=== PATIENT | female | born 1940 | race Caucasian/White ===

== ENCOUNTER 2017-12-24 04:44 | Inpatient (IN) | payer MEDICARE, MEDICAID ==
[~2017-12-24] VITALS: Ht 167.6 cm; Wt 78.1 kg
--- NOTE | ~2017-12-24 | OP ---
PATIENT NAME: NILAY BENNETT MEDICAL RECORD: [id number] :40 LOCATION:D.MS [facility]2237 ADMISSION DATE:12/24/17 SURGEON: KARLA PENA MD DATE OF OPERATION: 12/26/2017 PROCEDURES: 1. PTCA stent left main. 2. Left heart catheterization. 3. Selective coronary angiography. 4. Vein graft angiography. 5. DACOSTA angiography. 6. HOLLI angiography. INDICATION: Non-Q-wave myocardial infarction and coronary artery disease. PROCEDURE IN DETAIL: After informed consent was obtained and after a detailed description of risks, benefits as well as alternative therapies, the patient elected to proceed with angiogram and angioplasty. The right femoral area was prepped and draped in normal sterile fashion. The right femoral artery was cannulated via modified Seldinger technique with placement of 6-Zimbabwean sheath. All catheters exchanged through this sheath. FINDINGS: The left ventriculogram was performed in standard 30-degree MCGRAW view, reveals global hypokinesis throughout all segments. Overall ejection fraction 35% to 40%. SELECTIVE CORONARY ANGIOGRAPHY: 1. Left main has 85% stenosis distally. 2. Left anterior descending is totally occluded. 3. DACOSTA to the LAD is widely patent. There is an 85% hazy stenosis after the DACOSTA. 4. The left circumflex has moderate irregularities, but no flow-limiting stenosis. 5. Right coronary is totally occluded. 6. HOLLI to the RCA is totally occluded. PTCA STENT OF THE LEFT MAIN: Left main was addressed with a 3.5 x 15 mm Dc stent. Result was 0% residual stenosis. OVERALL IMPRESSION: Successful PTCA stent of the left main leading to the non-grafted circumflex going from 85% initial stenosis to 0% residual. PLAN: PTCA stent of the LAD through the DACOSTA graft in the near future. TRANSINT:[id number] Voice Confirmation ID: [id number] DOCUMENT ID: [id number] KARLA PENA MD at 1816 CC: [id number] DICTATION DATE: 12/26/17 1245 SCULLION CHIEF: 12/26/17 1321 [place] [address]
--- NOTE | ~2017-12-24 | OP ---
PATIENT NAME: NILAY BENNETT MEDICAL RECORD: [id number] :40 LOCATION:D.M2 D.2116 ADMISSION DATE:12/24/17 SURGEON: KARLA PENA MD DATE OF OPERATION: 12/28/2017 PROCEDURES: 1. PTCA stent LAD. 2. Selective coronary angiography. INDICATION: Angina and coronary artery disease. PROCEDURE IN DETAIL: After informed consent was obtained and after detailed description of risks, benefits as well as alternative therapies, the patient elected to proceed with angiogram and angioplasty. The left femoral area was prepped and draped in normal sterile fashion. Left femoral artery was cannulated via modified Seldinger technique with placement of 6-Liberian sheath. All catheters exchanged through this sheath. FINDINGS: The left anterior descending has 80% hazy stenosis after the patent DACOSTA graft. We went through the DACOSTA graft and addressed this with a 3.0 x 12 mm Dc stent. Result was 0% residual stenosis. OVERALL IMPRESSION: Successful percutaneous transluminal coronary angioplasty stent of the left anterior descending through the patent left internal mammary artery graft going from 80% initial stenosis to 0% residual. TRANSINT:[id number] Voice Confirmation ID: [id number] DOCUMENT ID: [id number] KARLA PENA MD at 1059 CC: [id number] DICTATION DATE: 12/28/17 170 PET SITTER: 12/28/17 172 DIS IN 12/29/17 [id number] [place] [address]
--- NOTE | ~2017-12-24 | MORECARE ---
CASE MANAGEMENT DISCHARGE SUMMARY PATIENT: NILAY RUBIO UNIT: [id number] ADM DATE: 12/24/17 AGE: 77 : 40 SEX: F ROOM/BED: D.7686 AUTHOR: KATHY,DOC PHYSICIAN: REFERRING PHYSICIAN: JOELLEN TINOCO MD DATE OF SERVICE: 12/31/17 Discharge Plan Patient Name: NILAY RUBIO Facility: [facility]:[place] : 1940 Planned Disposition: Home Anticipated Discharge Date: 12/29/17 Discharge Date: 12/29/2017 Expected LOS: 5 Initial Reviewer: [email or web address] Initial Review Date: 12/25/2017 Generated: 12/31/17 8:50 am Comments DCP- Discharge Planning Updated by [email or web address]: Sue Ortega on 12/28/17 2:[address] Received orders for discharge after heart cath. She has not gone to the grinding and polishing laborer yet. She states she does not have any needs at this time for discharge. CM will continue to follow and assist with discharge planning/needs. DCP- Discharge Planning Updated by [email or web address]: Sue Ortega on 12/25/17 2:[address] Patient Name: NILAY RUBIO Admission Status: ER Accout number: [id number] Admission Date: 12-24-2017 : 1940 Admission Diagnosis: Attending: JOELLEN TINOCO Current LOS: 1 Anticipated DC Date: Planned Disposition: Home Primary Insurance: MEDICARE A & B Discharge Planning Comments: CM met with patient and spouse to discuss discharge planning. She lives with her and is independent with all ADL's and IADL's. States she gets her CPAP supplies from [facility]. [facility] checks her glucose daily. She denies need for additional DME or Home health services. CM will continue to follow and assist with discharge planning/needs. Dairy Frozen Manager: Sue Ortega DCPIA - Discharge Planning Initial Assessment Updated by [email or web address]: Sue Ortega on 12/25/17 2:31 pm * Is the patient Alert and Oriented? Yes * How many steps to enter\exit or inside your home? 1/0 * PCP Dr. Horton in [place] * Pharmacy [facility] [place] * Preadmission Environment Home with Family * ADLs Independent * Equipment CPAP Glucometer * List name and contact numbers for known caregivers / representatives who currently or will assist patient after discharge: David Rubio - spouse - [phone] * Verbal permission to speak to the caregivers and representatives has been obtained from the patient. Yes * Community resources currently utilized None * Additional services required to return to the preadmission environment? No * Can the patient safely return to the preadmission environment? Yes * Has this patient been hospitalized within the prior 30 days at any hospital? No Coverage Notice Reviewer: [email or web address] Elena Ortega Notice Issued Date-Time: 12/28/2017 14:29 Notice Type: IM Discharge Notice Notice Delivered To: Patient Relationship to Patient: Self Cna Instructor Name: David Rubio Delivery Method: HAND - Hand Delivered Kylah Days: Prior Verbal Notification: Recipient Understood Notice: Yes Recipient Signature: Yes Med Rec Note Co-signed by Attending: Coverage Notice Comment: IMM explained, signed, copy given, original placed in MR. Signed by per her request. Last DP export: 12/28/17 2:39 p Patient Name: NILAY RUBIO Page 49512 at 0750 All edits/amendments must be made on the electronic document DICTATION DATE: 12/31/17748 PSYCHOLOGIST CHIEF: JOSE 12/31/1749 RPT#: [id number] DC DATE:12/29/17 STATUS: DIS IN [facility] [address] [place] [address] END OF REPORT
--- NOTE | ~2017-12-24 | MORECARE ---
CASE MANAGEMENT DISCHARGE SUMMARY PATIENT: NILAY RUBIO UNIT: [id number] ADM DATE: 12/24/17 AGE: 77 : 40 SEX: F ROOM/BED: D.2237 AUTHOR: KATHY,DOC PHYSICIAN: REFERRING PHYSICIAN: JOELLEN TINOCO MD DATE OF SERVICE: 12/25/17 Discharge Plan Patient Name: NILAY RUBIO Facility: [facility]:[place] : 1940 Planned Disposition: Home Anticipated Discharge Date: Discharge Date: Expected LOS: Initial Reviewer: [email or web address] Initial Review Date: 12/25/2017 Generated: 12/25/17 3:41 pm Comments DCP- Discharge Planning Updated by [email or web address]: Sue Jordan on 12/25/17 1:[address] Patient Name: NILAY RUBIO Admission Status: ER Accout number: [id number] Admission Date: 12-24-2017 : 1940 Admission Diagnosis: Attending: JOELLEN TINOCO Current LOS: 1 Anticipated DC Date: Planned Disposition: Home Primary Insurance: MEDICARE A & B Discharge Planning Comments: CM met with patient and spouse to discuss discharge planning. She lives with her and is independent with all ADL's and IADL's. States she gets her CPAP supplies from [facility]. [facility] checks her glucose daily. She denies need for additional DME or Home health services. CM will continue to follow and assist with discharge planning/needs. Radar Scientist: Sue Ortega DCPIA - Discharge Planning Initial Assessment Updated by [email or web address]: Sue Ortega on 12/25/17 2:31 pm * Is the patient Alert and Oriented? Yes * How many steps to enter\exit or inside your home? 1/0 * PCP Dr. Horton in [place] * Pharmacy [facility] [place] * Preadmission Environment Home with Family * ADLs Independent * Equipment CPAP Glucometer * List name and contact numbers for known caregivers / representatives who currently or will assist patient after discharge: David Rubio - spouse - [phone] * Verbal permission to speak to the caregivers and representatives has been obtained from the patient. Yes * Community resources currently utilized None * Additional services required to return to the preadmission environment? No * Can the patient safely return to the preadmission environment? Yes * Has this patient been hospitalized within the prior 30 days at any hospital? No Last DP export: 12/25/17 1:32 Patient Name: NILAY RUBIO Page 92469 at 1441 All edits/amendments must be made on the electronic document DICTATION DATE: 12/25/171440 LASERIST: JOSE 12/25/171440 RPT#: [id number] DC DATE: STATUS: ADM IN [facility] [address] [place] [address] END OF REPORT
--- NOTE | ~2017-12-24 | HEMODYNAMI ---
PATIENT:NILAY BENNETT MEDICAL RECORD: [id number] : 40 LOCATION:[facility] [place]37 ADMISSION DATE: 12/24/17 Generatedon:12/26/201712:54 Patient name: NILAY BENNETT Patient #: [id number] SSN: : 1 04/16/1939 Date of study: 12/26/2017 Page: Of Hemodynamic Procedure Report Patient Data Patient Demographics Procedure consent was obtained First Name: NILAY Gender: Female Last Name: SABRINA : 1940 Patient #: [id number] Age: 77 year(s) Race: Unknown Additional ID: [id number] Contact details [address]: [address] [place] [address] State: [place] City: [place] Zip code: [address] Past Medical History Allergies Allergen Reaction Date Comments Reported Statins 12/26/2017 Admission Admission Data Admission Date: 12/24/2017 Admission Time: 7:18 Room #: D2237 Procedure Procedure Types Cath Procedure Diagnostic Procedure LHC LHC w/Coronaries w/Grafts PCI Procedure Coronary Stent Coronary Stent Initial Procedure Description Procedure Date Procedure Date: 12/26/2017 Procedure Start Time: 12:28 Procedure End Time: 12:47 Procedure Staff Name Function Urbano Vásquez MD Performing Physician Obi Perez RT Monitor Virginie Powell RT Scrub Marie Alexandra RN Nurse Procedure Data Cath Procedure Fluoroscopy Diagnostic fluoroscopy Total fluoroscopy Time: 3.8 time: 3.8 min min Diagnostic fluoroscopy Total fluoroscopy dose: 698 dose: 698 mGy mGy Contrast Material Contrast Material Type Amount (ml) Isovue 300 120 Entry Location Entry Primary Successful Side Size Upsize Upsize Entry Closure Succes sful Closure Location (Fr) 1 (Fr) 2 (Fr) Remarks Device Remarks Femoral Right 5 Fr 6 Fr Exoseal artery Short Estimated blood loss: 10 ml Diagnostic catheters Device Type Used For End Catheter Placement MULTIPACK Pigtail 5 Fr Procedure catheter MULTIPACK JL 4.0 5Fr Procedure catheter MULTIPACK 3DRC 5Fr Procedure catheter Procedure Complications No complications Procedure Medications Medication Administration Route Dosage 0.9% NaCl I.V. 100 ml/hr Oxygen etCO2 Nasal cannula 2 l/min Lidocaine 2% added to field 20 Heparin Flush Bag added to field 2 bags (1000units/500ml NS) Versed I.V. 2 mg Fentanyl I.V. 100 mcg Versed I.V. 2 mg Fentanyl I.V. 50 mcg Heparin Bolus I.V. 4000 units Plavix P.O. 75 mg Versed I.V. 1 mg Hemodynamics Rest Heart Rate: 95 (bpm) Pressure Samples Time Site Value (mmHg) Purpose Heart Use Rate(bpm) 12:29 LV 148/17,19 Pullback 82 12:29 AO 113/65(86) Pullback 82 Gradients Valve Time Site 1 Site 2 Mean SEP/DFP Peak To Heart Use (mmHg) (sec/min) Peak Rate (mmHg) (bpm) Aortic 12:29 LV AO 28 24 35 82 148/17,19 113/65(86) Calculations Valve P-P Mean Valve Index Valve Source Name Gradient Area Flow (cm2) Aortic 35 28 35 28 Snapshots Pre Cath Intra NCS Post Cath Vital Signs Time Heart Resp SPO2 etCO2 NIBP Rhythm Pain Sedation Rate (ipm) (%) (mmHg) (mmHg) Status Level (bpm) 12:17:12 105 28 96 24.6 96/84(92) NSR 0 (11) 10(A) , No pain 12:22:38 91 25 96 29.8 111/57(77) NSR 0 (11) 10(A) , No pain 12:27:02 84 23 97 29.8 108/63(87) NSR 0 (11) 10(A) , No pain 12:31:28 83 14 96 30 104/49(75) NSR 0 (11) 10(A) , No pain 12:35:50 88 12 95 24.6 104/56(77) NSR 0 (11) 10(A) , No pain 12:40:15 86 14 95 27.6 96/49(76) NSR 0 (11) 10(A) , No pain 12:44:31 91 17 95 27.6 106/65(84) NSR 0 (11) 10(A) , No pain Medications Time Medication Route Dose Verified Delivered Reason Notes Effectiveness by by 11:59:12 0.9% NaCl I.V. 100 Urbano Marie used for ml/hr Thalia Alexandra financial recording clerk 11:59:25 Oxygen etCO2 2 Urbano Marie used for Nasal l/min Thalia Alexandra procedure cannula RN 11:59:34 Lidocaine 2% added 20ml Urbano Urbano for local to vial Thalia Vásquez MD anesthetic field 11:59:38 Heparin Flush added 2 Urbano Urbano used for Bag to bags Thalia Vásquez MD procedure (1000units/500ml field NS) 12:28:40 Versed I.V. 2 mg Urbano Marie for sedation Thalia Alexandra RN 12:28:49 Fentanyl I.V. 100 Urbano Marie for sedation mcg Thalia Alexandra RN 12:33:33 Versed I.V. 2 mg Urbano Marie for sedation Thalia Alexandra RN 12:33:42 Fentanyl I.V. 50 Urbano Marie for sedation mcg Thalia Alexandra RN 12:36:27 Heparin Bolus I.V. 4000 Urbano Marie for units Thalia Alexandra anticoagulation RN 12:36:37 Plavix P.O. 75 mg Urbano Marie for Thalia Alexandra antiplatelet RN therapy 12:36:55 Versed I.V. 1 mg Urbano Marie for sedation Thalia Alexandra finishing department supervisor Log Time Note 11:54:07 Time tracking: Regular hours (M-F 7:00 - 5:00) 11:54:10 Plan of Care:Hemodynamics will remain stable., Cardiac rhythm will remain stable., Comfort level will be maintained., Respiratory function will remain adequate., Patient/ family verbilizes understanding of procedure., Procedure tolerated without complication., Recovers from procedure without complications.. 11:54:18 H&P Date Dictated: 12/24/2017 Within 30 days and on chart.. 11:54:26 Virginie Powell RT(R) sent for patient. Start room use. 11:59:12 0.9% NaCl 100 ml/hr I.V. was administered by Marie Alexandra RN; used for procedure; 11:59:25 Oxygen 2 l/min etCO2 Nasal cannula was administered by Marie Alexandra RN; used for procedure; 11:59:34 Lidocaine 2% 20ml vial added to field was administered by Urbano Vásquez MD; for local anesthetic; 11:59:38 Heparin Flush Bag (1000units/500ml NS) 2 bags added to field was administered by Urbano Vásquez MD; used for procedure; 12:10:14 Patient received from Med II to CCL 1 Alert and oriented. Tansferred to table in Supine position. 12:10:15 Correct patient and procedure confirmed by team. 12:10:15 Warm blankets applied, and ronni hugger turned on for patient comfort. 12:10:17 ECG and BP/O2 sat monitors applied to patient. 12:10:17 Signed procedure consent form obtained from patient. 12:10:18 Pre-op teaching completed and patient verbalized understanding. 12::18 Pre-procedure instructions explained to patient. 12:10:19 Family in waiting room. 12:10:21 Patient NPO since Midnight. 12:15:37 Vital chart was started 12:19:04 Patient allergic to Statins 12:19:16 Full Disclosure recording started 12:19:22 Rhythm: sinus rhythm 12:19:24 Baseline sample Acquired. 12:19:35 Is the patient allergic to Iodine/contrast media? No. 12:26:59 Is patient on blood thinner?Yes 12:27:01 ACC The patient was administered the following blood thiners within the last 24 hours: ACCPlavix 12:27:04 Previous problem with sedation/anesthesia? No ? 12:27:05 Snore? Yes 12:27:06 Sleep apnea? Yes 12:27:40 Airway obstruction? No ? 12:27:42 Dentures? No ? 12:27:45 Pre procedure: right dorsailis pedis pulse 1+ Palpable, but thready & weak; easily obliterated 12:27:47 Patient pain scale 0/10 ?. 12:27:54 IV patent on arrival in right forearm with 0.9% NaCl at O. 12:27:56 Lab results completed and on chart. 12:27:58 Right groin area was prepped with chlora-prep and draped in sterile fashion 12:27:59 Sharps counted by scrub and verified by R.N. 12:27:59 Alarms reviewed by R. N. 12:28:01 Use device set Femoral Dx 12:28:02 Medline Cath Pack ([id number]) opened to sterile field. 12:28:02 Bag Decanter () opened to sterile field. 12:28:02 ACIST Syringe (97519) opened to sterile field. 12:28:03 ACIST Hand Control (39651) opened to sterile field. 12:28:04 ACIST Manifold (06001) opened to sterile field. 12:28:05 Tegaderm 4 x 4 (1626W) opened to sterile field. 12:28:10 SHEATH Prelude 5Fr 0.035 (XZF-7A-07-035) opened to sterile field. 12:28:11 DIAGNOSTIC WIRE .035 260cm J wire (883286) opened to sterile field. 12:28:13 DIAGNOSTIC Multipack 5Fr catheter set (CR4166) opened to sterile field. 12::18 Final Timeout: patient, procedure, and site verified with staff and physician. All members of the team are in agreement. 12::18 --------ALL STOP TIME OUT------ :18 Physician arrived 12:28:20 Right groin site verified by team. 12::22 Physical assessment completed. ASA score P 2 - A patient with mild systemic disease as per Urbano Vásquez MD. 12:28:23 Sedation plan: IV Moderate Sedation Medication:Versed, Fentanyl 12::40 Versed 2 mg I.V. was administered by Marie Alexandra RN; for sedation; 12::43 Zero performed for pressure channel P1 12::46 Zero performed for pressure channel P1 12::49 Fentanyl 100 mcg I.V. was administered by Marie Alexandra RN; for sedation; 12::50 Procedure started. 12:28:51 Local anesthetic to right femoral artery with Lidocaine 2% by Urbano Vásquez MD.INITIAL ACCESS ONLY 12:28:52 A 5 Fr sheath was inserted into the Right Femoral artery 12:29:12 A MULTIPACK Pigtail 5 Fr catheter was advanced over the wire and used for Procedure. 12:29:17 LV gram done using MCGRAW 12::21 Injector settings: Ml/sec: 10, Volume: 20, 12:30:31 LV hemodynamics recorded. 12:30:35 EF : 40 % 12:30:36 Catheter exchanged over wire. 12:30:41 A MULTIPACK JL 4.0 5Fr catheter was advanced over the wire and used for Procedure. 12:30:43 LCA angiography performed. 12:31:33 INFLATOR Merit BasixCompak (EU4584) opened to sterile field. 12:31:34 SHEATH 6FR [place] (XDQ648) opened to sterile field. 12:31:43 CHOICE PT Extra Support 182cm wire ([id number]) opened to sterile field. 12:31:58 Catheter exchanged over wire. 12:32:04 A MULTIPACK 3DRC 5Fr catheter was advanced over the wire and used for Procedure. 12:33:33 Versed 2 mg I.V. was administered by Marie Alexandra RN; for sedation; 12:33:42 Fentanyl 50 mcg I.V. was administered by Marie Alexandra RN; for sedation; 12:34:06 DACOSTA to LAD angiography performed. 12:34:07 HOLLI angiography performed. 12:34:08 RCA angiography performed. 12:34:36 Catheter removed. 12:34:53 Sheath upsized to a 6 Fr Short. 12:36:27 Heparin Bolus 4000 units I.V. was administered by Marie Alexandra RN; for anticoagulation; 12:36:37 Plavix 75 mg P.O. was administered by Marie Alexandra RN; for antiplatelet therapy; 12:36:55 Versed 1 mg I.V. was administered by Marie Alexandra RN; for sedation; 12:37:06 GUIDE 6FR EBU 3.5 catheter ([id number]) opened to sterile field. 12:37:18 6 Fr ebu 3.5 guide catheter was inserted over the wire 12:37:24 choice pt es wire advanced. 12:37:26 Wire advanced across lesion. 12:38:39 Place stent Inflation Number: 1 A DONNIE RX 3.5 x 15 stent ([id number]) was prepped and advanced across the LMCA. The stent was deployed at 17 FAUZIA for 0:10 (min:sec). 12:39:17 Stent catheter was removed intact over wire. 12:39:18 Guide catheter removed. 12:39:18 Wire removed. 12:39:23 EXOSEAL 6Fr (EX600) opened to sterile field. 12:39:31 Sheath removed intact; hemostasis achieved with Exoseal to the Right Femoral artery. 12:39:32 Procedure ended.(Physican Out) 12:40:17 EXOSEAL 6Fr (EX600) opened to sterile field. 12:40:25 Fluoroscopy time 03.80 minutes. 12:45:31 Fluoroscopy dose: 698 mGy 12:45:31 Flurop Dose total: 698 12:45:48 Contrast amount:Isovue 300 120ml. 12:45:50 Sharps counted by scrub and verified by R.N. 12:45:52 Insertion/operative site no bleeding no hematoma. 12:45:54 Post-op/insertion site Right Femoral artery dressed using a 4 x 4 and Tegaderm. 12:45:57 Post right femoral artery:stable, soft, clean and dry 12:45:59 Post Procedure Pulses reassessed and unchanged 12:46:02 Post-procedure physical assessment completed. ASA score P 2 - A patient with mild systemic disease as per Urbano Vásquez MD. 12:46:04 Post procedure rhythm: unchanged. 12:46:07 Estimated blood loss: 10 ml 12:46:09 Patient needs reinforcement of post procedure teaching. 12:46:09 Post procedure instruction explained to patient.Patient verbalizes understanding. 12:46:18 Procedure type changed to Cath procedure, Diagnostic procedure, LHC, LHC w/Coronaries w/Grafts, PCI procedure, Coronary Stent, Coronary Stent Initial 12:47:01 Procedure and supply charges have been captured, reviewed, submitted and are correct. 12:47:03 Procedure Complication : No complications 12:47:05 See physician's report for complete and final results. 12:47:05 Vital chart was stopped 12:47:07 Report given to Pre/Post Procedure Room. 12:47:09 Patient transfered to Pre/Post Procedure Room with Stretcher. 12:47:11 Full Disclosure recording stopped 12:47:11 Procedure ended. 12:47:16 End room use (Document Last) 12:53:34 FEMSTOP Gold (X29461) opened to sterile field. 12:53:36 Femstop placed over the right femoral artery at 160 mmHg. Hemostasis achieved. Intervention Summary Intervention Notes Time ActionType Lesion and Equipment Used Action# Pressure Duration Attributes 12:38:[address] stent LMCA DONNIE RX 3.5 x 1 17 00:10 15 stent ([id number]) Device Usage Item Name Manufacture Quantity Catalog Number Hospital Part Current Minimal Lot# / Charge Number Stock Stock Serial# Code ACIST Syringe Acist 1 51217 281798 554194 118681 20 (04619) [employer] Bag Decanter Microtek 1 2001S 184459 61138 733623 5 (2001S) Medical Inc. Medline Cath Medline 1 [id number] 583995 64553 831507 5 Pack ([id number]) ACIST Hand Acist 1 64137 771882 251514 536747 5 Control (68902) [employer] Inc ACIST Manifold Acist 1 17064 212928 386312 293704 5 (15570) Medical Systems Inc Tegaderm 4 x 4 3M 1 1626W 040277 988073 710364 5 (1626W) SHEATH Prelude Merit 1 LUN-3H-17-035 221683 399866 503922 5 5Fr 0.035 Medical (ERL-1C-75-035) DIAGNOSTIC WIRE St See 1 639659 071559 205530 127588 30 .035 260cm J wire (076107) DIAGNOSTIC Cardinal 1 EU6048 529253 40889 228284 30 Multipack 5Fr Health catheter set (OM9303) MULTIPACK Cardinal 1 691383 5 Pigtail 5 Fr Health catheter MULTIPACK JL Cardinal 1 682052 5 4.0 5Fr Health catheter INFLATOR Merit Merit 1 UQ3202 179759 681127 782870 15 Everyware Global Medical (WQ5352) SHEATH 6FR Terumo 1 AHZ664 770749 829461 726820 40 [place] (WRW105) CHOICE PT Extra [place] 1 [id number] 215200 609665 041773 5 Support 182cm Scientific wire ([id number]) MULTIPACK 3DRC Cardinal 1 289793 5 5Fr catheter Health GUIDE 6FR EBU Medtronic 1 [id number] 442925 15161 761909 3 3.5 catheter ([id number]) DONNIE RX 3.5 x Medtronic 1 [id number] 957301 0273669 062982 5 [id number] 15 stent ([id number]) EXOSEAL 6Fr Cardinal 2 EX600 723198 303298 702548 10 (EX600) Health FEMSTOP Gold St See 1 X43003 253252 485892 544891 5 (R56453) Signature Audit [place] Stage Time Signature Unsigned Intra-Procedure 12/26/2017 Obi Perez RT(R) 12:48:09 PM RT(R) 12/26/2017 12:53:06 PM Intra-Procedure 12/26/2017 Obi Perez 12:54:08 PM RT(R) Signatures Monitor : Obi Perez RT Signature : Date : Time : [address] [id number] [place] [address]
--- NOTE | ~2017-12-24 | MORECARE ---
CASE MANAGEMENT DISCHARGE SUMMARY PATIENT: NILAY RUBIO UNIT: [id number] ADM DATE: 12/24/17 AGE: 77 : 40 SEX: F ROOM/BED: D.2237 AUTHOR: KATHY,DOC PHYSICIAN: REFERRING PHYSICIAN: JOELLEN TINOCO MD DATE OF SERVICE: 12/28/17 Discharge Plan Patient Name: NILAY RUBIO Facility: [facility]:[place] : 1940 Planned Disposition: Home Anticipated Discharge Date: Discharge Date: Expected LOS: Initial Reviewer: [email or web address] Initial Review Date: 12/25/2017 Generated: 12/28/17 3:39 pm Comments DCP- Discharge Planning Updated by [email or web address]: Sue Ortega on 12/28/17 1:[address] Received orders for discharge after heart cath. She has not gone to the labor expediter yet. She states she does not have any needs at this time for discharge. CM will continue to follow and assist with discharge planning/needs. DCP- Discharge Planning Updated by [id number]: Sue Ortega on 12/25/17 1:[address] Patient Name: NILAY RUBIO Admission Status: ER Accout number: [id number] Admission Date: 12-24-2017 : 1940 Admission Diagnosis: Attending: JOELLEN TINOCO Current LOS: 1 Anticipated DC Date: Planned Disposition: Home Primary Insurance: MEDICARE A & B Discharge Planning Comments: CM met with patient and spouse to discuss discharge planning. She lives with her and is independent with all ADL's and IADL's. States she gets her CPAP supplies from [facility]. [facility] checks her glucose daily. She denies need for additional DME or Home health services. CM will continue to follow and assist with discharge planning/needs. Sas Developer Analyst: Sue Ortega DCPIA - Discharge Planning Initial Assessment Updated by [email or web address]: Sue Ortega on 12/25/17 2:31 pm * Is the patient Alert and Oriented? Yes * How many steps to enter\exit or inside your home? 1/0 * PCP Dr. Horton in [place] * Pharmacy [facility] mail order [facility] [place] * Preadmission Environment Home with Family * ADLs Independent * Equipment CPAP Glucometer * List name and contact numbers for known caregivers / representatives who currently or will assist patient after discharge: David Rubio - spouse - [phone] * Verbal permission to speak to the caregivers and representatives has been obtained from the patient. Yes * Community resources currently utilized None * Additional services required to return to the preadmission environment? No * Can the patient safely return to the preadmission environment? Yes * Has this patient been hospitalized within the prior 30 days at any hospital? No Coverage Notice Reviewer: [email or web address] Elena Ortega Notice Issued Date-Time: 12/28/2017 14:29 Notice Type: IM Discharge Notice Notice Delivered To: Patient Relationship to Patient: Self Railroad Signal Technician Name: David Rubio Delivery Method: HAND - Hand Delivered Kylah Days: Prior Verbal Notification: Recipient Understood Notice: Yes Recipient Signature: Yes Med Rec Note Co-signed by Attending: Coverage Notice Comment: IMM explained, signed, copy given, original placed in MR. Signed by per her request. Last DP export: 12/25/17 1:41 Patient Name: NILAY RUBIO Page [phone] at 1439 All edits/amendments must be made on the electronic document DICTATION DATE: 12/28/17 1438 OPINION POLLS SURVEY WORKER: JOSE 12/28/17 1438 RPT#: [id number] DC DATE: STATUS: ADM IN [facility] [address] [place] [address] END OF REPORT
--- NOTE | ~2017-12-24 | HEMODYNAMI ---
PATIENT:NILAY BENNETT MEDICAL RECORD: [id number] : 40 LOCATION:[facility] E.2237 ADMISSION DATE: 12/24/17 Generatedon:12/28/201717:06 Patient name: NILAY BENNETT Patient #: [id number] SSN: : 1 04/16/1939 Date of study: 12/28/2017 Page: Of Hemodynamic Procedure Report Patient Data Patient Demographics Procedure consent was obtained First Name: NILAY Gender: Female Last Name: SABRINA : 1940 Patient #: [id number] Age: 77 year(s) Race: Unknown Additional ID: [id number] Contact details [address]: [address] [place] [address] State: [place] City: [place] Zip code: [address] Past Medical History Allergies Allergen Reaction Date Comments Reported Statins 12/26/2017 Admission Admission Data Admission Date: 12/24/2017 Admission Time: 7:18 Room #: 2237 Procedure Procedure Types Cath Procedure PCI Procedure AMI/SVG/LAPPING MACHINE TENDER PTCA or Stent SVG-BMS/EUGENIO Initial Procedure Description Procedure Date Procedure Date: 12/28/2017 Procedure Start Time: 16:55 Procedure End Time: 17:06 Procedure Staff Name Function Urbano Vásquez MD Performing Physician Cindy Medina RT Monitor Obi Perez RT Scrub Mickey Andre RN Nurse Amna Pierce RT Monitor Procedure Data Cath Procedure Fluoroscopy Diagnostic fluoroscopy Total fluoroscopy Time: 1.7 time: 1.7 min min Diagnostic fluoroscopy Total fluoroscopy dose: 169 dose: 169 mGy mGy Contrast Material Contrast Material Type Amount (ml) Isovue 300 39 Entry Location Entry Primary Successful Side Size Upsize Upsize Entry Closure Succes sful Closure Location (Fr) 1 (Fr) 2 (Fr) Remarks Device Remarks Femoral Left 6 Fr Exoseal artery Short Estimated blood loss: 5 ml Procedure Complications No complications Procedure Medications Medication Administration Route Dosage 0.9% NaCl I.V. 100 ml/hr Oxygen etCO2 Nasal cannula 2 l/min Heparin Flush Bag added to field 2 bags (1000units/500ml NS) Lidocaine 2% added to field 20 Plavix P.O. 75 mg Versed I.V. 1 mg Fentanyl I.V. 50 mcg Heparin Bolus I.V. 4000 units Hemodynamics Rest Heart Rate: 92 (bpm) Snapshots Pre Cath Intra NCS Post Cath Vital Signs Time Heart Resp SPO2 etCO2 NIBP (mmHg) Rhythm Pain Sedation Rate (ipm) (%) (mmHg) Status Level (bpm) 16:28:46 91 14 96 0 136/89(129) NSR 0 (11) 10(A) , No pain 16:33:02 88 23 94 0 146/79(115) NSR 0 (11) 10(A) , No pain 16:53:52 80 16 95 0 128/73(108) NSR 0 (11) 10(A) , No pain 16:58:08 84 18 95 0 126/71(101) NSR 0 (11) 10(A) , No pain 17:03:09 87 21 96 0 135/83(111) NSR 0 (11) 10(A) , No pain Medications Time Medication Route Dose Verified Delivered Reason Notes Effectiveness by by 16:54:44 0.9% NaCl I.V. 100 Mickey Mickey for arrhythmia ml/hr Thai Andre RN RN 16:54:52 Oxygen etCO2 2 Mickey Mickey Per physician Nasal l/min Thai Andre cannula RN RN 16:55:03 Heparin Flush added 2 Mickey Mickey used for Bag to bags Thai Andre procedure (1000units/500ml field RN RN NS) 16:55:13 Lidocaine 2% added 20ml Mickey Mickey for local to vial Thai Andre anesthetic field RN RN 16:55:37 Plavix P.O. 75 mg Mickey Mickey for Thai Andre antiplatelet RN RN therapy 16:55:46 Versed I.V. 1 mg Mickey Mickey for sedation Thai Andre RN RN 16:55:54 Fentanyl I.V. 50 Mickey Mickey for sedation mcg Thai Andre RN RN 16:58:23 Heparin Bolus I.V. 4000 Mickey Mickey for units Thai Andre anticoagulation RN asphalt plant operator Log Time Note 16:10:58 Rocky Hornre RN sent for patient. Start room use. 16:20:24 Time tracking: Regular hours (M-F 7:00 - 5:00) 16:20:28 Plan of Care:Hemodynamics will remain stable., Cardiac rhythm will remain stable., Comfort level will be maintained., Respiratory function will remain adequate., Patient/ family verbilizes understanding of procedure., Procedure tolerated without complication., Recovers from procedure without complications.. 16:20:35 Patient received from PCU to [facility] Alert and oriented. Tansferred to table in Supine position. 16:20:36 Warm blankets applied, and ronni hugger turned on for patient comfort. 16:20:37 Correct patient and procedure confirmed by team. 16:20:38 Signed procedure consent form obtained from patient. 16:20:39 ECG and BP/O2 sat monitors applied to patient. 16:20:40 Full Disclosure recording started 16:27:49 Vital chart was started 16:27:51 Baseline sample Acquired. 16:27:55 Rhythm: sinus rhythm 16:28:03 H&P Date Dictated: 12/28/2017 Within 30 days and on chart.. 16:28:04 Pre-procedure instructions explained to patient. 16:28:05 Pre-op teaching completed and patient verbalized understanding. 16:28:06 Family in patients room. 16:28:07 Patient NPO since Midnight. 16:28:09 Is the patient allergic to Iodine/contrast media? No. 16:28:11 Is patient on blood thinner?Yes 16:28:14 ACC The patient was administered the following blood thiners within the last 24 hours: ACCPlavix 16:29:12 Patient diabetic? No. 16:29:21 Previous problem with sedation/anesthesia? No ? 16:29:25 Snore? Yes 16:29:26 Sleep apnea? Yes 16:29:27 Deviated septum? No 16:29:28 Opens mouth fully? Yes 16:29:29 Sticks out tongue? Yes 16:29:36 Airway obstruction? No ? 16:29:42 Dentures? No ? 16:29:53 Pre procedure: left dorsailis pedis pulse 1+ Palpable, but thready & weak; easily obliterated 16:29:56 Patient pain scale 0/10 ?. 16:30:11 IV patent on arrival in right forearm with 0.9% NaCl at [facility]. 16:30:13 Lab results completed and on chart. 16:30:19 Left groin area was prepped with chlora-prep and draped in sterile fashion 16:30:20 Alarms reviewed by R. N. 16:30:20 Sharps counted by scrub and verified by R.N. 16:34:32 IV right hand D/C'd due to infiltration. 16:44:44 Vital chart was stopped 16:46:32 Use device set CATH PACK 16:46:36 Use device set TAUTH PCI 16:46:38 ACIST Syringe (53719) opened to sterile field. 16:46:38 ACIST Hand Control (33103) opened to sterile field. 16:46:39 ACIST Manifold (31899) opened to sterile field. 16:46:40 Medline Cath Pack ([id number]) opened to sterile field. 16:46:41 Bag Decanter (2002S) opened to sterile field. 16:46:42 DIAGNOSTIC WIRE .035 260cm J wire (123300) opened to sterile field. 16:46:44 INFLATOR Merit BasixCompak (MF7148) opened to sterile field. 16:46:49 CHOICE PT Extra Support 182cm wire ([id number]) opened to sterile field. 16:48:35 IV started by Mickey Andre RN inRight upper arm with a 20 gauge IV catheter with 0.9% NaCl at KVO. 16:51:30 Physician paged 16:52:45 Vital chart was started 16:53:38 Zero performed for pressure channel P1 16:53:53 Final Timeout: patient, procedure, and site verified with staff and physician. All members of the team are in agreement. 16:53:55 Left groin site verified by team. 16:53:58 Physical assessment completed. ASA score P 2 - A patient with mild systemic disease as per Urbano Vásquez MD. 16:54:01 Sedation plan: IV Moderate Sedation Medication:Versed, Fentanyl 16:54:44 0.9% NaCl 100 ml/hr I.V. was administered by Mickey Andre RN; for arrhythmia; 16:54:52 Oxygen 2 l/min etCO2 Nasal cannula was administered by Mickey Andre RN; Per physician; 16:55:03 Heparin Flush Bag (1000units/500ml NS) 2 bags added to field was administered by Mickey Lorigan RN; used for procedure; 16:55:13 Lidocaine 2% 20ml vial added to field was administered by Mickey Andre RN; for local anesthetic; 16:55:33 Procedure started. 16:55:37 Plavix 75 mg P.O. was administered by Mickey Andre RN; for antiplatelet therapy; 16:55:46 Versed 1 mg I.V. was administered by Mickey Andre RN; for sedation; 16:55:52 Local anesthetic to left femerol artery with Lidocaine 2% by Urbano Vásquez MD.INITIAL ACCESS ONLY 16:55:54 Fentanyl 50 mcg I.V. was administered by Mickey Andre RN; for sedation; 16:56:54 A 6 Fr Short sheath was inserted into the Left Femoral artery 16:57:08 6 Fr SHERRI 90CM guide catheter was inserted over the wire 16:57:57 CHOICE PT ES wire advanced. 16:58:23 Heparin Bolus 4000 units I.V. was administered by Mickey Andre RN; for anticoagulation; 17:00:35 Place stent Inflation Number: 1 A DONNIE RX 3.0 x 12 stent ([id number]) was prepped and advanced across the DACOSTA -> Prox LAD. The stent was deployed at 11 FAUZIA for 0:08 (min:sec). 17:01:00 Stent catheter was removed intact over wire. 17:01:01 Wire removed. 17:01:01 Guide catheter removed. 17:01:12 Sheath removed intact; hemostasis achieved with Exoseal to the Left Femoral artery. 17:01:14 Procedure ended.(Physican Out) 17:01:31 Fluoroscopy time 01.70 minutes. 17:01:35 Flurop Dose total: 169 17:01:35 Fluoroscopy dose: 169 mGy 17:01:39 Contrast amount:Isovue 300 39ml. 17:01:40 Sharps counted by scrub and verified by R.N. 17:01:42 Insertion/operative site no bleeding no hematoma. 17:02:05 Post-op/insertion site Left Femoral artery dressed using a 4 x 4 and Tegaderm. 17:02:14 Post left femerol artery:stable, clean and dry 17:02:16 Post Procedure Pulses reassessed and unchanged 17:02:19 Post-procedure physical assessment completed. ASA score P 2 - A patient with mild systemic disease as per Urbano Vásquez MD. 17:02:21 Post procedure rhythm: unchanged. 17:02:45 Estimated blood loss: 5 ml 17:02:47 Post procedure instruction explained to patient.Patient verbalizes understanding. 17:02:47 Patient needs reinforcement of post procedure teaching. 17:02:48 Procedure and supply charges have been captured, reviewed, submitted and are correct. 17:03:25 EXOSEAL 6Fr (EX600) opened to sterile field. 17:04:04 Procedure type changed to Cath procedure, PCI procedure, AMI/SVG/LAPPING MACHINE TENDER PTCA or Stent, SVG-BMS/EUGENIO Initial 17:04:28 GUIDE 6FR SHERRI 90 catheter ([id number]) opened to sterile field. 17:04:59 SHEATH 6FR Enterprise (JTJ641) opened to sterile field. 17:05:33 Tegaderm 4 x 4 (1626W) opened to sterile field. 17:06:02 Procedure Complication : No complications 17:06:05 See physician's report for complete and final results. 17:06:09 Report given to PCU. 17:06:12 Patient transfered to PCU with Bed. 17:06:23 Procedure ended. 17:06:23 Full Disclosure recording stopped 17:06:27 End room use (Document Last) 17:06:53 Vital chart was stopped Intervention Summary Intervention Notes Time ActionType Lesion and Equipment Used Action# Pressure Duration Attributes 17:00:35 Place stent DACOSTA -> DONNIE RX 3.0 x 1 11 00:08 Prox LAD 12 stent ([id number]) Device Usage Item Name Manufacture Quantity Catalog Number Hospital Part Current M inimal Lot# / Charge Number Stock Stock Serial# Code ACIST Syringe Acist 1 69330 063843 688341 710827 2 0 (54525) Medical Systems Inc ACIST Hand Acist 1 34452 501617 803928 129682 5 Control Medical (45580) Systems Inc ACIST Manifold Acist 1 88346 029538 559087 937028 5 (32151) Medical Systems Inc Medline Cath Medline 1 [id number] 500749 15267 476549 5 Pack ([id number]) Bag Decanter Microtek 1 713285 51262 052685 5 () Medical Inc. DIAGNOSTIC St See 1 505824 101410 845002 317962 3 0 WIRE .035 260cm J wire (872878) INFLATOR Merit Merit 1 JU6697 858421 989978 157422 1 5 [facility] Medical (JT3885) CHOICE PT [place] 1 [id number] 313390 316356 169155 5 Extra Support Scientific 182cm wire ([id number]) DONNIE RX 3.0 x Medtronic 1 [id number] 168641 3539552 532352 5 [id number] 12 stent ([id number]) EXOSEAL 6Fr Cardinal 1 EX600 879739 750646 043412 1 0 (EX600) Health GUIDE 6FR SHERRI Medtronic 1 [id number] 844394 93531 574502 1 90 catheter ([id number]) SHEATH 6FR Terumo 1 BQT489 452385 111822 477328 4 0 Enterprise (TNX431) Tegaderm 4 x 4 3M 1 1626W 887178 176235 835791 5 (1626W) Signature Audit [place] Stage Time Signature Unsigned Intra-Procedure 12/28/2017 Amna 5:06:49 PM Counts RT(R) Signatures Monitor : Cindy Medina RT Signature : Date : Time : Monitor : Amna Signature : Counts RT Date : Time : [place] [id number] [place] [address]
--- NOTE | ~2017-12-24 | MORECARE ---
CASE MANAGEMENT DISCHARGE SUMMARY PATIENT: NILAY RUBIO UNIT: [id number] ADM DATE: 12/24/17 AGE: 77 : 40 SEX: F ROOM/BED: D.2237 AUTHOR: OLENA CHAVEZ PHYSICIAN: REFERRING PHYSICIAN: JOELLEN TINOCO MD DATE OF SERVICE: 12/25/17 Discharge Plan Patient Name: [facility]ILAY RUBIO [facility] [facility] 1940 Planned Disposition: Home Anticipated Discharge Date: Discharge Date: Expected LOS: Initial Reviewer: [email or web address] Initial Review Date: 12/25/2017 Generated: 12/25/17 3:32 pm DCPIA - Discharge Planning Initial Assessment Updated by [id number]: Sue Ortega on 12/25/17 2:31 pm * Is the patient Alert and Oriented? Yes * How many steps to enter\exit or inside your home? 1/0 * PCP Dr. Horton in [place] * Pharmacy [facility] [place] [address] [facility] * Preadmission Environment Home with Family * ADLs Independent * Equipment CPAP Glucometer * List name and contact numbers for known caregivers / representatives who currently or will assist patient after discharge: David Rubio - spouse - [phone] * Verbal permission to speak to the caregivers and representatives has been obtained from the patient. Yes * Community resources currently utilized None * Additional services required to return to the preadmission environment? No * Can the patient safely return to the preadmission environment? Yes * Has this patient been hospitalized within the prior 30 days at any hospital? No Patient Name: NILAY RUBIO Page 79142 at 1433 All edits/amendments must be made on the electronic document DICTATION DATE: 12/25/17 143 REGULATOR OPERATOR: JOSE 12/25/17 143 RPT#: [id number] DC DATE: STATUS: ADM IN [facility] [address] [place] [address] END OF REPORT
--- NOTE | ~2017-12-24 | EC ---
PATIENT:NILAY BENNETT DATE OF SERVICE: 12/24/17 SEX: F MEDICAL RECORD: [id number] DATE OF : 40 LOCATION:D.MS [place] AGE OF PATIENT: 77 ADMISSION DATE: 12/24/17 REFERRING PHYSICIAN: INTERPRETING PHYSICIAN: KARLA VÁSQUEZ MD ECHOCARDIOGRAM REPORT ECHO CHARGES 4 ECHO COMPLETE Date: 12/24/17 CLINICAL DIAGNOSIS: AORTIC STENOSIS ECHOCARDIOGRAPHIC MEASUREMENTS (adult normal given) AC root (d.<3.7cm) 2.8 cm LV Septum d (<1.2 cm> 1.1 cm Valve Excursion 0.3 cm LV Septum (systole) 1.3 cm Left Atria (s.<4.0cm> 4.2 cm LVPW d(<1.2cm) 1.2 cm RV (d.<2.3cm) 2.8 cm LVPW (sytole) 1.2 cm LV diastole(<5.6CM) 6.4 cm MV E-F(>70mm/sec) cm LV systole 5.2 cm LVOT Diameter 2.0 cm MV exc.(>10mm) cm Est.ejection fraction (50-75%) % DOPPLER: LVIT cm/sec A 101 cm/sec E 77 cm/sec LA cm/sec RVSP 19.0 mmHg LVOT 110 cm/sec AOP1/2T m/s Asc. Ao 391 cm/sec RVOT 59 cm/sec RA cm/sec PA 114 cm/sec AV Gradient Peak 61.2 mmHg AV Mean 42.9 mmHg AV Area 0.8 cm MV Gradient Peak 4.3 mmHg MV Mean 2.1 mmHg MV Area cm COMMENTS: Blood Donor Unit Assistant: Daysi [facility] Strapping Machine Tender: 1 Dr. Vásquez TAPE# PACS Pericardial Effusion N DATE OF SERVICE: 12/24/2017 Echocardiogram FINDINGS: 1. Left ventricular chamber size is within normal limits. Left ventricular systolic function is normal. Overall ejection fraction estimated at 50%. 2. Left atrium, right atrium, and right ventricle chamber sizes are upper limits of normal to mildly dilated, left atrium measures 4.2 cm. 3. Valvular structures have normal structure and motion. ECHOCARDIOGRAM REPORT [id number] NILAY BENNETT 4. Doppler interrogation only reveals trace mitral regurgitation, no other valvular insufficiency or stenosis. 5. No evidence of pericardial effusion or left ventricular thrombus. TRANSINT:[id number] Voice Confirmation ID: [id number] DOCUMENT ID: [id number] KARLA VÁSQUEZ MD at 1235 CC: [id number] DICTATION DATE: 12/24/171704 SIX COLOR PRESS OPERATOR: 12/24/172032 ADM IN [place] [id number] [place] [address]
[2017-12-24 05:45] VITALS: BP 155/83
[2017-12-24 05:48] LABS: BASOPHILS 0.2 % (0-2); EOSINOPHILS 0.7 % (0-7); HEMATOCRIT 41.4 % (36.0-48.0); HEMOGLOBIN 13.5 g/dL (12-16); IMMATURE GRANULOCYTES 0.4 % (0-5); LYMPHOCYTES 28.1 % (15-50); MCH 31.4 pg (26.0-34.0); MCHC 32.6 g/dL (31.0-37.0); MCV 96.3 fL (80.0-100.0); MONOCYTES 3.6 % (2-11); PLATELET COUNT 263 10x3/uL (130-400); RDW 14.9 % (11.5-14.5); WBC 16.1 10x3/uL (4.8-10.8)
[2017-12-24 05:55] LABS: APTT 28.5 SECONDS (22.8-39.4); INR 1.05 (0.85-1.17); PROTIME 13.3 SECONDS (11.6-15.0)
[2017-12-24 05:56] LABS: D-DIMER-QUANTITATIVE 1.19 ug/mLFEU (0.20-0.54)
[2017-12-24 06:04] LABS: ALKALINE PHOSPHATASE 67 U/L (46-116); ALT (SGPT) 130 U/L (10-68); BILIRUBIN - TOTAL 0.42 mg/dL (0.2-1.3); CALC OSMOLALITY 290 mosm/kg (275-300); CALCIUM 8.7 mg/dL (8.5-10.1); CHLORIDE - SERUM 104 mmol/L (98-107); CREATININE - SERUM 0.8 mg/dL (0.6-1.3); GLUCOSE 256 mg/dL (74-106); POTASSIUM - SERUM 3.7 mmol/L (3.5-5.1); SODIUM 140 mmol/L (136-145); UREA NITROGEN 20 mg/dL (7-18); eGFR NON AFRICAN AMERICAN 74 mL/min (90-120)
[2017-12-24 06:10] LABS: CKMB 1.8 U/L (0.0-3.6); CREATINE KINASE 56 UL (21-215); PRO BNP 2208 pg/mL (0-450); TROPONIN-I 0.045 ng/mL (0.000-0.060)
[2017-12-24 07:02] VITALS: BP 144/88
[2017-12-24] MEDS ORDERED: KLONOPIN0.5 MG PO (09:22)
[2017-12-24] MEDS ORDERED: TEMAZEPAM30 MG PO (09:22)
[2017-12-24 09:34] VITALS: BP 149/81; BMI 32.3
[2017-12-24 11:54] LABS: TROPONIN-I 0.119 ng/mL (0.000-0.060)
[2017-12-24 12:32] VITALS: BP 148/74
[2017-12-24 16:31] VITALS: BP 131/67
[2017-12-24 18:08] LABS: CKMB 2.4 U/L (0.0-3.6); CREATINE KINASE 83 UL (21-215)
[2017-12-24 20:00] VITALS: BP 109/49
[2017-12-25 01:07] LABS: CKMB 2.7 U/L (0.0-3.6); CREATINE KINASE 98 UL (21-215)
[2017-12-25 06:00] VITALS: BP 99/57
[2017-12-25 06:29] LABS: BASOPHILS 0 % (0-2); EOSINOPHILS 0 % (0-7); HEMATOCRIT 37.6 % (36.0-48.0); HEMOGLOBIN 12.6 g/dL (12-16); IMMATURE GRANULOCYTES 0.3 % (0-5); MCH 31.2 pg (26.0-34.0); MCHC 33.5 g/dL (31.0-37.0); MCV 93.1 fL (80.0-100.0); MEAN PLATELET VOLUME 10.7 fL (7.4-10.4); NEUTROPHILS 84.7 % (40-80); PLATELET COUNT 279 10x3/uL (130-400); RBC 4.04 10x6/uL (4.00-5.40); RDW 14.4 % (11.5-14.5); WBC 18.7 10x3/uL (4.8-10.8)
[2017-12-25 07:09] LABS: ANION GAP 12.7 mmol/L (8-16); BILIRUBIN - TOTAL 0.34 mg/dL (0.2-1.3); CALCIUM 8.4 mg/dL (8.5-10.1); CARBON DIOXIDE 27.5 mmol/L (21.0-32.0); CREATININE - SERUM 0.8 mg/dL (0.6-1.3); MAGNESIUM - SERUM 2.2 mg/dL (1.8-2.4); PHOSPHOROUS 4.3 mg/dL (2.5-4.9); POTASSIUM - SERUM 3.2 mmol/L (3.5-5.1); PROTEIN - SERUM 6.5 g/dL (6.4-8.2)
[2017-12-25 08:45] VITALS: BP 116/53
[2017-12-25 12:45] VITALS: BP 124/61
[2017-12-25 12:56] VITALS: Ht 167.6 cm; Wt 78.1 kg
[2017-12-25 17:50] VITALS: BP 124/73
[2017-12-25 20:00] VITALS: BP 108/71
[2017-12-26 05:37] LABS: BASOPHILS 0.2 % (0-2); HEMOGLOBIN 12.3 g/dL (12-16); IMMATURE GRANULOCYTES 0.3 % (0-5); LYMPHOCYTES 30.7 % (15-50); MCH 31.3 pg (26.0-34.0); MCHC 33.2 g/dL (31.0-37.0); MCV 94.1 fL (80.0-100.0); MEAN PLATELET VOLUME 10.8 fL (7.4-10.4); MONOCYTES 6.8 % (2-11); PLATELET COUNT 269 10x3/uL (130-400); RBC 3.93 10x6/uL (4.00-5.40)
[2017-12-26 05:43] LABS: ALBUMIN 2.7 g/dL (3.4-5.0); ANION GAP 12.5 mmol/L (8-16); BILIRUBIN - TOTAL 0.41 mg/dL (0.2-1.3); CREATININE - SERUM 0.9 mg/dL (0.6-1.3); POTASSIUM - SERUM 3.5 mmol/L (3.5-5.1)
[2017-12-26 05:50] LABS: WBC 11.2 10x3/uL (4.8-10.8)
[2017-12-26 06:00] VITALS: BP 135/66
[2017-12-26 09:28] VITALS: BP 109/79
[2017-12-26 12:49] VITALS: BP 134/77
[2017-12-26 20:00] VITALS: BP 118/54
[2017-12-27 05:00] VITALS: BP 107/74
[2017-12-27 06:11] LABS: BASOPHILS 0.1 % (0-2); EOSINOPHILS 0.2 % (0-7); HEMATOCRIT 40.9 % (36.0-48.0); HEMOGLOBIN 13.2 g/dL (12-16); IMMATURE GRANULOCYTES 0.2 % (0-5); LYMPHOCYTES 26.4 % (15-50); MCH 31.1 pg (26.0-34.0); MCHC 32.3 g/dL (31.0-37.0); MEAN PLATELET VOLUME 10.9 fL (7.4-10.4); MONOCYTES 7.9 % (2-11); NEUTROPHILS 65.2 % (40-80); PLATELET COUNT 293 10x3/uL (130-400); RBC 4.24 10x6/uL (4.00-5.40); RDW 15.4 % (11.5-14.5); WBC 13.8 10x3/uL (4.8-10.8)
[2017-12-27 06:34] LABS: MCV 96.5 fL (80.0-100.0)
[2017-12-27 06:49] LABS: ALBUMIN 2.9 g/dL (3.4-5.0); ANION GAP 10.7 mmol/L (8-16); BILIRUBIN - TOTAL 0.29 mg/dL (0.2-1.3); CALCIUM 8.4 mg/dL (8.5-10.1); CREATININE - SERUM 0.8 mg/dL (0.6-1.3); POTASSIUM - SERUM 3.7 mmol/L (3.5-5.1); PROTEIN - SERUM 6.7 g/dL (6.4-8.2)
[2017-12-27 09:32] VITALS: BP 140/45
[2017-12-27 12:00] VITALS: BP 119/60
[2017-12-27 21:35] VITALS: BP 128/63
[2017-12-28] VITALS (9 sets, daily range): BP systolic 121–153; BP diastolic 61–77
[2017-12-28 06:19] LABS: BASOPHILS 0.2 % (0-2); EOSINOPHILS 1.5 % (0-7); HEMATOCRIT 40.4 % (36.0-48.0); IMMATURE GRANULOCYTES 0.3 % (0-5); LYMPHOCYTES 36.9 % (15-50); MCHC 32.2 g/dL (31.0-37.0); MCV 96.2 fL (80.0-100.0); MEAN PLATELET VOLUME 11.1 fL (7.4-10.4); MONOCYTES 6.8 % (2-11); NEUTROPHILS 54.3 % (40-80); PLATELET COUNT 283 10x3/uL (130-400); RDW 15.3 % (11.5-14.5); WBC 11.7 10x3/uL (4.8-10.8)
[2017-12-28 06:44] LABS: ALBUMIN 3.1 g/dL (3.4-5.0); ANION GAP 11.1 mmol/L (8-16); BILIRUBIN - TOTAL 0.39 mg/dL (0.2-1.3); CALCIUM 8.5 mg/dL (8.5-10.1); CARBON DIOXIDE 31.4 mmol/L (21.0-32.0); CREATININE - SERUM 0.8 mg/dL (0.6-1.3); POTASSIUM - SERUM 3.5 mmol/L (3.5-5.1); PROTEIN - SERUM 6.9 g/dL (6.4-8.2)
[2017-12-28] MEDS ORDERED: TESSALON PERLE100 MG PO (14:51)
[2017-12-28] MEDS ORDERED: ASPIRIN81 MG PO (14:52)
[2017-12-28] MEDS ORDERED: PLAVIX75 MG PO (14:52)
[2017-12-28] MEDS ORDERED: LEVAQUIN750 MG PO (14:52)
[2017-12-28] MEDS ORDERED: PREDNISONE10 MG PO (14:52)
[2017-12-29 01:42] VITALS: BP 119/60
[2017-12-29 05:11] LABS: BASOPHILS 0.1 % (0-2); EOSINOPHILS 0 % (0-7); HEMATOCRIT 37.5 % (36.0-48.0); HEMOGLOBIN 12.1 g/dL (12-16); IMMATURE GRANULOCYTES 0.4 % (0-5); LYMPHOCYTES 13.9 % (15-50); MCH 30.6 pg (26.0-34.0); MCHC 32.3 g/dL (31.0-37.0); MCV 94.9 fL (80.0-100.0); MEAN PLATELET VOLUME 10.7 fL (7.4-10.4); MONOCYTES 4.9 % (2-11); NEUTROPHILS 80.7 % (40-80); PLATELET COUNT 256 10x3/uL (130-400); RBC 3.95 10x6/uL (4.00-5.40); RDW 14.9 % (11.5-14.5); WBC 9.5 10x3/uL (4.8-10.8)
[2017-12-29 05:35] LABS: ALBUMIN 2.7 g/dL (3.4-5.0); ANION GAP 10.9 mmol/L (8-16); BILIRUBIN - TOTAL 0.3 mg/dL (0.2-1.3); CALCIUM 8.2 mg/dL (8.5-10.1); CARBON DIOXIDE 27.9 mmol/L (21.0-32.0); CREATININE - SERUM 0.9 mg/dL (0.6-1.3); POTASSIUM - SERUM 3.8 mmol/L (3.5-5.1); PROTEIN - SERUM 6.2 g/dL (6.4-8.2)
[2017-12-29 06:34] VITALS: BP 104/49
[2017-12-29 07:58] VITALS: BP 120/64
== END 2017-12-29 12:14 | disposition home or self-care (01) | DRG 246 ==
LOC: D.ER 04:44 → D.MS 07:18 → D.M2 12-28 17:11
PROVIDERS: Family Medicine; Internal Medicine Interventional Cardiology
PROC: B2151ZZ Fluoroscopy of Left Heart using Low Osmolar Contrast (ICD-10-PCS; 2017-12-26)
PROC: B2111ZZ Fluoroscopy of Multiple Coronary Arteries using Low Osmolar Contrast (ICD-10-PCS; 2017-12-26)
PROC: B2181ZZ Fluoroscopy of Left Internal Mammary Bypass Graft using Low Osmolar Contrast (ICD-10-PCS; 2017-12-26)
PROC: B2171ZZ Fluoroscopy of Right Internal Mammary Bypass Graft using Low Osmolar Contrast (ICD-10-PCS; 2017-12-26)
PROC: 4A023N7 Measurement of Cardiac Sampling and Pressure, Left Heart, Percutaneous Approach (ICD-10-PCS; 2017-12-26)
PROC: 027034Z Dilation of Coronary Artery, One Artery with Drug-eluting Intraluminal Device, Percutaneous Approach (ICD-10-PCS; principal; 2017-12-26 11:54)
PROC: 027034Z Dilation of Coronary Artery, One Artery with Drug-eluting Intraluminal Device, Percutaneous Approach (ICD-10-PCS; 2017-12-28)
DX: I11.0 Hypertensive heart disease with heart failure (principal); J18.9 Pneumonia, unspecified organism; J96.01 Acute respiratory failure with hypoxia; J96.02 Acute respiratory failure with hypercapnia; I50.33 Acute on chronic diastolic (congestive) heart failure; I35.0 Nonrheumatic aortic (valve) stenosis; I25.10 Atherosclerotic heart disease of native coronary artery without angina pectoris; Z95.1 Presence of aortocoronary bypass graft; E78.00 Pure hypercholesterolemia, unspecified; G47.33 Obstructive sleep apnea (adult) (pediatric); E87.6 Hypokalemia

== ENCOUNTER 2018-01-17 17:28 | Inpatient (IN) | payer MEDICARE, MEDICAID ==
[~2018-01-17] VITALS: Ht 167.6 cm; Wt 84.8 kg
--- NOTE | ~2018-01-17 | EC ---
PATIENT:NILAY BENNETT DATE OF SERVICE: 01/18/18 SEX: F MEDICAL RECORD: [id number] DATE OF : [birth year] LOCATION:D.M2 D.212 AGE OF PATIENT: 77 ADMISSION DATE: 01/18/18 REFERRING PHYSICIAN: INTERPRETING PHYSICIAN: NATHAN STANLEY MD ECHOCARDIOGRAM REPORT ECHO CHARGES 4 ECHO COMPLETE Date: 01/18/18 CLINICAL DIAGNOSIS: CHF HX OF CAD ECHOCARDIOGRAPHIC MEASUREMENTS (adult normal given) AC root (d.<3.7cm) 3.5 cm LV Septum d (<1.2 cm> 1.5 cm Valve Excursion 1.7 cm LV Septum (systole) 1.7 cm Left Atria (s.<4.0cm> 4.4 cm LVPW d(<1.2cm) 1.5 cm RV (d.<2.3cm) 2.9 cm LVPW (sytole) 1.9 cm LV diastole(<5.6CM) 6.4 cm MV E-F(>70mm/sec) cm LV systole 5.2 cm LVOT Diameter 1.7 cm MV exc.(>10mm) 1.6 cm Est.ejection fraction (50-75%) % DOPPLER: LVIT cm/sec A 68.0 cm/sec E 107 cm/sec LA cm/sec RVSP 23 mmHg LVOT 83 cm/sec AOP1/2T m/s Asc. Ao 315 cm/sec RVOT 89 cm/sec RA cm/sec PA 183 cm/sec AV Gradient Peak 39.76mmHg AV Mean 25.06mmHg AV Area 0.6 cm MV Gradient Peak 8.12 mmHg MV Mean 2.49 mmHg MV Area cm COMMENTS: Director Institution: 2 [facility] Software Engineering: 4 Dr. Stanley TAPE# 4 PACS Pericardial Effusion N DATE OF SERVICE: PROCEDURE: Transthoracic echocardiogram. FINDINGS: 1. Left ventricle appears to be mildly dilated in comparison to previous study. There also appears to be more anterior hypokinesis than previous study. The ejection fraction is 30% to 35%. 2. The left atrium is mildly dilated. 3. The aortic valve appears to have ubxtsgfu-qy-bnkmzs aortic stenosis with a ECHOCARDIOGRAM REPORT [id number] NILAY BENNETT peak pressure gradient of 40 mmHg and a calculated aortic valve area between 0.6 cm-squared and 1 cm-squared. 4. The mitral valve shows moderate mitral regurgitation, centralized, centrally located. 5. The tricuspid valve has mild tricuspid regurgitation, RVSP of 30 to 40 mmHg. 6. The right ventricle is normal size, shape, and function. 7. The right atrium is normal. CONCLUSIONS: The patient has evidence of ischemic heart disease, dilated ischemic cardiomyopathy, ejection fraction of 35%. The patient has moderate to moderately severe aortic stenosis and moderate mitral regurgitation. These are changes from previous study from dated November. TRANSINT:[id number] Voice Confirmation ID: [id number] DOCUMENT ID: [id number] NATHAN STANLEY MD at 0916 CC: [id number] DICTATION DATE: 01/18/18 1316 LIQUOR GALLERY OPERATOR: 01/18/18 1519 ADM IN [place] [address] [place] [address]
--- NOTE | ~2018-01-17 | MORECARE ---
CASE MANAGEMENT DISCHARGE SUMMARY PATIENT: NILAY BENNETT UNIT: [id number] ADM DATE: 01/18/18 AGE: 77 : 40 SEX: F ROOM/BED: D.2122 AUTHOR: OLENA CHAVEZ PHYSICIAN: REFERRING PHYSICIAN: JOELLEN TINOCO MD DATE OF SERVICE: 01/21/18 Discharge Plan Patient Name: NILAY BENNETT [facility] [facility] 1940 Planned Disposition: Home Anticipated Discharge Date: 01/20/18 Discharge Date: 01/20/2018 Expected LOS: 2 Initial Reviewer: [email or web address] Initial Review Date: 01/21/2018 Generated: 01/21/18 10:44 am Patient Name: NILAY BENNETT Page 57556 at 0944 All edits/amendments must be made on the electronic document DICTATION DATE: 01/21/18942 INTENSIVIST: JOSE 01/21/1843 RPT#: [id number] DC DATE:01/20/18 STATUS: DIS IN [facility] [address] [place] [address] END OF REPORT
[~2018-01-17 17:28] MED LIST: ASPIRIN81 MG PO; KLONOPIN0.5 MG PO; LEVAQUIN750 MG PO; PLAVIX75 MG PO; PREDNISONE10 MG PO; TEMAZEPAM30 MG PO; TESSALON PERLE100 MG PO
[2018-01-17 18:32] LABS: BASOPHILS 0.1 % (0-2); EOSINOPHILS 0.3 % (0-7); HEMATOCRIT 38.7 % (36.0-48.0); HEMOGLOBIN 12.6 g/dL (12-16); IMMATURE GRANULOCYTES 0.2 % (0-5); LYMPHOCYTES 9.9 % (15-50); MCH 31.1 pg (26.0-34.0); MCHC 32.6 g/dL (31.0-37.0); MCV 95.6 fL (80.0-100.0); MEAN PLATELET VOLUME 10.5 fL (7.4-10.4); MONOCYTES 4.2 % (2-11); NEUTROPHILS 85.3 % (40-80); PLATELET COUNT 230 10x3/uL (130-400); RBC 4.05 10x6/uL (4.00-5.40); RDW 15.4 % (11.5-14.5); WBC 10.2 10x3/uL (4.8-10.8)
[2018-01-17 18:51] LABS: INR 1.01 (0.85-1.17); PROTIME 12.8 SECONDS (11.6-15.0)
[2018-01-17 18:52] LABS: ALBUMIN 2.9 g/dL (3.4-5.0); ALKALINE PHOSPHATASE 68 U/L (46-116); ALT (SGPT) 120 U/L (10-68); BILIRUBIN - TOTAL 0.48 mg/dL (0.2-1.3); CALC OSMOLALITY 285 mosm/kg (275-300); CALCIUM 8.1 mg/dL (8.5-10.1); CARBON DIOXIDE 25.6 mmol/L (21.0-32.0); CHLORIDE - SERUM 105 mmol/L (98-107); CREATININE - SERUM 0.8 mg/dL (0.6-1.3); D-DIMER-QUANTITATIVE 0.88 ug/mLFEU (0.20-0.54); GLUCOSE 175 mg/dL (74-106); POTASSIUM - SERUM 3.4 mmol/L (3.5-5.1); PROTEIN - SERUM 6.9 g/dL (6.4-8.2); SODIUM 141 mmol/L (136-145); UREA NITROGEN 15 mg/dL (7-18); eGFR NON AFRICAN AMERICAN 74 mL/min (90-120)
[2018-01-17 19:05] LABS: CKMB 1.2 U/L (0.0-3.6); CREATINE KINASE 49 UL (21-215); PRO BNP 6717 pg/mL (0-450); THYROID STIMULATING HORMONE 4.26 uIU/mL (0.36-3.74)
[2018-01-17 19:08] LABS: TROPONIN-I 0.152 ng/mL (0.000-0.060)
[2018-01-17 19:45] LABS: APPEARANCE CLEAR (CLEAR); BILIRUBIN NEGATIVE (NEGATIVE); COLOR YELLOW (YELLOW); GLUCOSE NEGATIVE (NEGATIVE); KETONE NEGATIVE (NEGATIVE); NITRITE NEGATIVE (NEGATIVE); PROTEIN NEGATIVE (NEGATIVE); SPECIFIC GRAVITY 1.005 (1.005-1.020); UROBILINOGEN NORMAL (NORMAL)
[2018-01-18] VITALS (7 sets, daily range): BP systolic 103–151; BP diastolic 60–87; Ht 167.6 cm; Wt 84.8 kg
[2018-01-18 01:20] LABS: CKMB 1.4 U/L (0.0-3.6); CREATINE KINASE 51 UL (21-215)
[2018-01-18 01:23] LABS: TROPONIN-I 0.198 ng/mL (0.000-0.060)
[2018-01-18 08:40] LABS: TROPONIN-I 0.153 ng/mL (0.000-0.060)
[2018-01-18 14:50] LABS: CKMB 1.2 U/L (0.0-3.6); CREATINE KINASE 57 UL (21-215)
[2018-01-18 14:54] LABS: TROPONIN-I 0.139 ng/mL (0.000-0.060)
[2018-01-19] VITALS: BP 128/72
[2018-01-19 04:00] VITALS: BP 136/84
[2018-01-19 04:23] LABS: BASOPHILS 0.5 % (0-2); EOSINOPHILS 7.1 % (0-7); HEMOGLOBIN 11.3 g/dL (12-16); LYMPHOCYTES 28.2 % (15-50); MCH 30.9 pg (26.0-34.0); MCHC 32.3 g/dL (31.0-37.0); MCV 95.6 fL (80.0-100.0); MEAN PLATELET VOLUME 10.3 fL (7.4-10.4); MONOCYTES 8.1 % (2-11); NEUTROPHILS 56.1 % (40-80); PLATELET COUNT 216 10x3/uL (130-400); RBC 3.66 10x6/uL (4.00-5.40); RDW 15.8 % (11.5-14.5)
[2018-01-19 04:25] LABS: WBC 5.8 10x3/uL (4.8-10.8)
[2018-01-19 04:33] LABS: CALCIUM 8.1 mg/dL (8.5-10.1); CARBON DIOXIDE 26.9 mmol/L (21.0-32.0); CHLORIDE - SERUM 106 mmol/L (98-107); CREATININE - SERUM 0.6 mg/dL (0.6-1.3); POTASSIUM - SERUM 3.7 mmol/L (3.5-5.1); SODIUM 141 mmol/L (136-145); eGFR NON AFRICAN AMERICAN > 90 mL/min (90-120)
[2018-01-19 04:41] LABS: CALC OSMOLALITY 284 mosm/kg (275-300); GLUCOSE 109 mg/dL (74-106); UREA NITROGEN 22 mg/dL (7-18)
[2018-01-19 07:50] VITALS: BP 136/54
[2018-01-19 11:09] VITALS: BP 103/66
[2018-01-19 15:11] VITALS: BP 110/59
[2018-01-19 19:45] VITALS: BP 142/83
[2018-01-20 03:45] VITALS: BP 127/74
[2018-01-20 06:20] LABS: BASOPHILS 0.3 % (0-2); EOSINOPHILS 5.2 % (0-7); HEMATOCRIT 38.8 % (36.0-48.0); HEMOGLOBIN 12.6 g/dL (12-16); IMMATURE GRANULOCYTES 0.1 % (0-5); LYMPHOCYTES 39.7 % (15-50); MCH 31.1 pg (26.0-34.0); MCHC 32.5 g/dL (31.0-37.0); MCV 95.8 fL (80.0-100.0); MEAN PLATELET VOLUME 10.8 fL (7.4-10.4); NEUTROPHILS 47.7 % (40-80); PLATELET COUNT 248 10x3/uL (130-400); RBC 4.05 10x6/uL (4.00-5.40); RDW 15.6 % (11.5-14.5); WBC 6.8 10x3/uL (4.8-10.8)
[2018-01-20 06:37] LABS: ANION GAP 12.4 mmol/L (8-16); CALCIUM 8.2 mg/dL (8.5-10.1); CARBON DIOXIDE 25.4 mmol/L (21.0-32.0); POTASSIUM - SERUM 3.8 mmol/L (3.5-5.1)
[2018-01-20 06:43] LABS: CREATININE - SERUM 0.8 mg/dL (0.6-1.3)
[2018-01-20 08:13] VITALS: BP 124/73
[2018-01-20] MEDS ORDERED: K-DUR20 MEQ PO (11:13)
[2018-01-20] MEDS ORDERED: LASIX40 MG PO (11:13)
[2018-01-20 11:28] VITALS: BP 114/63
== END 2018-01-20 13:42 | disposition home or self-care (01) | DRG 292 ==
LOC: D.ER 17:28 → D.M2 21:16 → OBSVTIME 21:16 → D.M2 01-18 14:45
PROVIDERS: Family Medicine; Internal Medicine Nephrology
DX: I11.0 Hypertensive heart disease with heart failure (principal); N17.9 Acute kidney failure, unspecified; I50.9 Heart failure, unspecified; E87.6 Hypokalemia; I35.0 Nonrheumatic aortic (valve) stenosis; E78.5 Hyperlipidemia, unspecified; I25.10 Atherosclerotic heart disease of native coronary artery without angina pectoris; Z95.1 Presence of aortocoronary bypass graft; Z95.5 Presence of coronary angioplasty implant and graft; E11.9 Type 2 diabetes mellitus without complications

== ENCOUNTER → 2018-10-07 13:02 | Outpatient (CLI) | payer MEDICARE, BC ==
[2018-01-18 14:06] VITALS: BMI 30.1
[~2018-10-07 13:02] MED LIST changes: +K-DUR20 MEQ PO; +LASIX40 MG PO
== END | disposition home or self-care (01) ==
LOC: D.RT 10-04 09:00
PROVIDERS: ATTEND Internal Medicine Cardiovascular Disease
DX: Z79.899 Other long term (current) drug therapy (principal)